=== PATIENT | male | born 2000 | race Caucasian/White ===

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

== ENCOUNTER 2023-01-12 12:37 | Emergency (ER) | payer SELFPAY ==
[2023-01-12 13:04] VITALS: PULSE 76
--- NOTE | 2023-01-12 13:26 | ED ---
Upper Extremity HPI - General Source: patient, EMS, RN notes reviewed Mode of arrival: ambulatory Limitations: no limitations <Tyler Bullock - Last Filed: 01/12/23 13:25> <Adonis Jiménez - Last Filed: 01/12/23 22:45> - General Chief Complaint: Extremity Injury, Upper Stated Complaint: rt arm injury Time Seen by Provider: 01/12/23 13:25 - History of Present Illness Initial Comments: 22-year-old male presents emergency department right elbow pain. Patient states she is diabetes. Pop. Patient states she has some numbness and tingling and pain radiating up and down his arm. He is [id number]-qijwtaji. Patient states it is somewhat improved today but states he still does not have his full strength. (Tyler Bullock) Patient originally seen as a quick note. Patient was playing extensive softball over the weekend and began having right arm pain. [place] a pop in the anterior aspect of his right elbow. Has normal range of motion but pain with movement. No obvious deformities. No obvious masses. No neurological deficits. Was weak in that arm, and still is not at his full strength but no sensory deficits. It is improving. Presents for further evaluation at this time. Denies any other injuries. I agree with evaluation by the mid-level provider except for the above typing errors. (Adonis Jiménez) - Related Data Previous Rx's Medication Instructions Recorded Ibuprofen [Motrin] 600 mg PO Q8HR PRN #20 tab 10/09/20 Allergies Allergy/AdvReac Type Severity Reaction Status Date / Time No Known Allergies Allergy Verified 01/12/23 13:04 Review of Systems ROS Other: All systems not noted in ROS Statement are negative. <Tyler Bullock - Last Filed: 01/12/23 13:25> ROS Other: All systems not noted in ROS Statement are negative. <Adonis Jiménez - Last Filed: 01/12/23 22:45> ROS Statement: Those systems with pertinent positive or pertinent negative responses have been documented in the HPI. Review of Systems: CONST: Denies fever EYES: Denies blurry vision ENT: Denies nasal congestion C/V: Denies Chest pain RESP: Denies shortness of breath GI: Denies abdominal pain : Denies dysuria SKIN: Denies rash. MSK: Endorses right arm pain NEURO: Denies headache (Adonis Jiménez) Past Medical History Past Medical History: No Reported History History of Any Multi-Drug Resistant Organisms: None Reported Past Surgical History: Ear Surgery Past Psychological History: No Psychological Hx Reported Smoking Status: Never smoker Past Alcohol Use History: None Reported Past Drug Use History: None Reported <Tyler Bullock - Last Filed: 01/12/23 13:25> General Exam Limitations: no limitations <Tyler Bullock - Last Filed: 01/12/23 13:25> <Adonis Jiménez - Last Filed: 01/12/23 22:45> - General Exam Comments Initial Comments: Visual Physical Exam Vital signs reviewed General: Well-appearing, nontoxic, no acute distress. Head: Normocephalic, atraumatic Eyes: PERRLA, EOMI ENT: Airway patent Chest: Nonlabored breathing Skin: No visual rash, normal skin tone Neuro: Alert and oriented 3 Musculoskeletal: No gross abnormalities (Tyler Bullock) General: Appears in no acute distress. HEAD: Normal with no signs of head trauma. EYES: EOMI. ENT: Hearing grossly intact. RESPIRATORY: No respiratory distress. C/V: Regular rate and rhythm. ABD: Abdomen is nondistended. EXT: No obvious deformity. Normal range of motion of the right elbow, right shoulder, right wrist and hand. Somewhat very mildly decreased decontamination worker strength. No sensory deficits. No deformities of the bicep muscle her bicep muscle body. Symmetrical with left arm. No shoulder tenderness to palpation. SKIN: No rashes or lesions observed on exposed skin. NEURO: Alert and oriented. (Adonis Jiménez) Course Vital Signs 01/12/23 01/12/23 12:56 15:32 Temperature 97.9 F 98.4 F Pulse Rate 76 76 Respiratory 18 16 Rate Blood Pressure 142/83 128/78 O2 Sat by Pulse 100 99 Oximetry Medical Decision Making <Adonis Jiménez - Last Filed: 01/12/23 22:45> - Medical Decision Making Was pt. sent in by a medical professional or institution (, [facility], VACCINE KEY CUSTOMER LEADER, urgent care, hospital, or halfway...) When possible be specific @ -No Did you speak to anyone other than the patient for history (EMS, parent, family, police, friend...)? What history was obtained from this source @ -No Did you review nursing and triage notes (agree or disagree)? Why? @ -I reviewed and agree with nursing and triage notes Were old charts reviewed (outside hosp., previous admission, EMS record, old EKG, old radiological studies, urgent care reports/EKG's, halfway records)? Report findings @ -No old charts were reviewed Differential Diagnosis (chest pain, altered mental status, abdominal pain women, abdominal pain men, vaginal bleeding, weakness, fever, dyspnea, syncope, headache, dizziness, GI bleed, back pain, seizure, CVA, palpatations, mental health, musculoskeletal)? @ -Muscle strain, muscle strain, bony traumatic injury. This list is not all inclusive. EKG interpreted by me (3pts min.). @ -None done X-rays interpreted by me (1pt min.). @ -X-ray shows no obvious acute fracture or subluxation. No obvious injury. CT interpreted by me (1pt min.). @ -None done U/S interpreted by me (1pt. min.). @ -None done What testing was considered but not performed or refused? (CT, X-rays, U/S, labs)? Why? @ -None What meds were considered but not given or refused? Why? @ -None Did you discuss the management of the patient with other professionals (professionals i.e. , PA, VACCINE KEY CUSTOMER LEADER, lab, RT, psych nurse, web content & social media manager, web content & social media manager, teacher, ecological technical officer, rn case mgr)? Give summary @ -No Was smoking cessation discussed for >3mins.? @ -No Was critical care preformed (if so, how long)? @ -No Were there social determinants of health that impacted care today? How? (Homelessness, low income, unemployed, alcoholism, drug addiction, transportation, low edu. Level, literacy, decrease access to med. care, long term, rehab)? @ -No Was there de-escalation of care discussed even if they declined (Discuss DNR or withdrawal of care, Hospice)? DNR status @ -No What co-morbidities impacted this encounter? (DM, HTN, Smoking, COPD, CAD, Cancer, CVA, ARF, Chemo, Hep., AIDS, mental health diagnosis, sleep apnea, morbid obesity)? @ -None Was patient admitted / discharged? Hospital course, mention meds given and route, prescriptions, significant lab abnormalities, going to OR and other pertinent info. @ -Based on the patient's presentation and physical exam, concern for likely muscle sprain or strain in the right arm. I couldn't really distal bicep muscle. No obvious injury. X-ray unremarkable. No obvious injury on x-ray. Vital signs within acceptable limits. Neurovascularly intact in the right upper extremity. Discussed results with the patient. Instructed to follow-up with orthopedics. Does not improve. Discussed [id number] analgesic medications, rest, icing it. Recommended he stay away from sports until it is feeling improved including throwing. He was in agreement this plan. I instructed the patient to follow up with their PCP in the next 1-3 days. I provided contact information for follow up with orthopedics. I explained that the patient should return to the emergency department if they experience any worsening symptoms. Strict return precautions were discussed with the patient. The patient expressed understanding of these instructions. I answered all questions that the patient had. The patient was discharged home in good condition with their prescriptions and follow up information. Undiagnosed new problem with uncertain prognosis? @ -No Drug Therapy requiring intensive monitoring for toxicity (Heparin, Nitro, Insulin, Cardizem)? @ -No Were any procedures done? @ -No Diagnosis/symptom? @ -Muscle sprain/strain Acute, or Chronic, or Acute on Chronic? @ -Acute Uncomplicated (without systemic symptoms) or Complicated (systemic symptoms)? @ -Uncomplicated Side effects of treatment? @ -No Exacerbation, Progression, or Severe Exacerbation? @ -No Poses a threat to life or bodily function? How? (Chest pain, [place], [place], pneumonia, PE, COPD, DKA, ARF, appy, cholecystitis, CVA, Diverticulitis, Homicidal, Suicidal, threat to staff... and all critical care pts) @ -No (Adonis Jiménez) Disposition <Tyler Bullock - Last Filed: 01/12/23 13:25> Is patient prescribed a controlled substance at d/c from ED?: No Time of Disposition: 15:05 <Adonis Jiménez - Last Filed: 01/12/23 22:45> Clinical Impression: Muscle strain Disposition: HOME SELF-CARE Condition: Good Instructions (If sedation given, give patient instructions): Muscle Strain (ED) Referrals: Deondre Winchester MD [Primary Care Provider] - 1-2 days Kenneth Amaro MD [STAFF PHYSICIAN] - 1-2 days
--- NOTE | 2023-01-12 14:45 | XR ---
EXAMINATION TYPE: XR elbow complete RT DATE OF EXAM: 01/12/2023 CLINICAL HISTORY: pain TECHNIQUE: Frontal, lateral and oblique images of the right elbow are obtained. COMPARISON: None. FINDINGS: There is no acute fracture/dislocation evident of the elbow. No abnormal fat pad signs ar e seen. The overlying soft tissue appears unremarkable. IMPRESSION: There is no acute fracture or dislocation of the elbow. ICD 10 NO FRACTURE, INITIAL EVALUATION
[2023-01-12 15:33] VITALS: BP 128/78; RESP 16; TEMP 98.4
== END 2023-01-12 15:47 | disposition home or self-care (01) ==
LOC: EC 12:37
DX: S66.911A Strain of unspecified muscle, fascia and tendon at wrist and hand level, right hand, initial encounter (principal); X58.XXXA Exposure to other specified factors, initial encounter; Y93.64 Activity, baseball
CPT/HCPCS: 99283